=== PATIENT | female | born 1955 | race Native Hawaiian/Other Pacific Islander ===

== ENCOUNTER 2019-07-10 10:56 | Outpatient (CLI) | payer OTHER, BC | END 2019-07-10 19:37 | disposition home or self-care (01) | LOC: RAD 10:56 | DX: M54.5 Low back pain (principal) ==

== ENCOUNTER 2020-12-14 13:08 | Emergency (ER) | payer OTHER, BC | END 2020-12-14 15:16 | disposition home or self-care (01) | LOC: ED 13:08 | DX: H92.01 Otalgia, right ear (principal); H70.891 Other mastoiditis and related conditions, right ear | CPT/HCPCS: 93005; 96372; 99283; J0696; J1885; J2405 ==

== ENCOUNTER 2021-07-16 12:04 | Emergency (ER) | payer OTHER, BC ==
[~2021-07-16] VITALS: Ht 160 cm; Wt 73.0 kg
[2021-07-16 12:11] VITALS: TEMP 98.3
[2021-07-16 14:30] LABS: PLATELET COUNT 342 K/uL (152-353)
[2021-07-16 14:49] LABS: POTASSIUM 3.9 mmol/L (3.6-5.2)
[2021-07-16 16:10] VITALS: BP 152/54
== END 2021-07-16 16:10 | disposition home or self-care (01) ==
LOC: ED 12:04
PROVIDERS: Emergency Medicine
DX: L03.115 Cellulitis of right lower limb (principal)
CPT/HCPCS: 80053; 85027; 85379; 85610; 99281; 99283

== ENCOUNTER 2021-12-18 07:32 | Outpatient (CLI) | payer OTHER, BC ==
[2021-12-18 08:13] LABS: POTASSIUM 3.7 mmol/L (3.6-5.2)
== END 2021-12-18 19:19 | disposition home or self-care (01) ==
LOC: LABW 07:32
PROVIDERS: ATTEND Optometrist
DX: H53.8 Other visual disturbances (principal); R63.4 Abnormal weight loss; Z79.899 Other long term (current) drug therapy
CPT/HCPCS: 36415; 80053; 83036